=== PATIENT | male | born 1955 | race Caucasian/White ===

== ENCOUNTER 2023-06-11 08:59 | Outpatient (CLI) | payer MEDICARE | END 2023-06-11 09:00 | disposition home or self-care (01) | LOC: BICMAMMO 08:59 | PROVIDERS: ATTEND Internal Medicine | DX: Z13.820 Encounter for screening for osteoporosis (principal); S22.009D Unspecified fracture of unspecified thoracic vertebra, subsequent encounter for fracture with routine healing; M81.0 Age-related osteoporosis without current pathological fracture; M85.851 Other specified disorders of bone density and structure, right thigh; M85.852 Other specified disorders of bone density and structure, left thigh | CPT/HCPCS: 77080 ==

== ENCOUNTER 2024-12-14 10:57 | Outpatient (CLI) | payer MEDICARE | END 2024-12-14 10:58 | disposition home or self-care (01) | LOC: SCSRAD 10:57 | PROVIDERS: ATTEND Internal Medicine | DX: J40 Bronchitis, not specified as acute or chronic (principal); R91.1 Solitary pulmonary nodule | CPT/HCPCS: 71046 ==

== ENCOUNTER 2025-03-11 10:47 | Outpatient (CLI) | payer MEDICARE | END 2025-03-11 10:48 | disposition home or self-care (01) | LOC: SCSRAD 10:47 | PROVIDERS: ATTEND Internal Medicine | DX: M25.562 Pain in left knee (principal) ==

== ENCOUNTER 2025-03-15 10:22 | Outpatient (CLI) | payer MEDICARE | END 2025-03-15 10:23 | disposition home or self-care (01) | LOC: SCSMRI 10:22 | PROVIDERS: ATTEND Internal Medicine | DX: M25.562 Pain in left knee (principal); S83.422A Sprain of lateral collateral ligament of left knee, initial encounter; M71.22 Synovial cyst of popliteal space [Baker], left knee ==